=== PATIENT | female | born 1990 | race Caucasian/White ===

== ENCOUNTER 2024-01-23 13:57 | Outpatient (REF) | payer OTHER, SELFPAY ==
--- NOTE | ~2024-01-23 | MM_ITS ---
EXAMINATION: MM DIAGNOSTIC DIGITAL BREAST TOMOSYNTHESIS, RIGHT US BREAST LIMITED, RIGHT MAMMOGRAPHY: CLINICAL INFORMATION: -6 month follow-up for several groups of calcifications in the superior lateral right breast, posterior one third.--Recent benign right breast stereotactic biopsy 08/21/2023. -Follow-up for probable lactating adenoma seen in the right breast 06/17/2023 11:00 axis, which resolved 08/21/2023 along with an abnormal enlarged right axillary lymph node which also resolved on 08/21/2023 exam. -Patient is no longer breast-feeding as of 2 months prior. COMPARISON: Mammography: Prior exams all from [facility]. Bilateral mammography dated 06/17/2023, 07/08/2023. Right breast ultrasound dated 06/17/2023, and 08/21/2023. TECHNIQUE: Digital breast tomosynthesis is performed in both the craniocaudal and mediolateral oblique views along with computer-aided detection (CAD). Synthesized 2D images are generated from the tomosynthesis. In addition to standard views, full-field 3-D digital right ML view was obtained, as well as 2-D spot magnification right CC and ML views. FINDINGS: The breasts are heterogeneously dense, which may obscure small masses (ACR BI-RADS breast composition Category c). There is a biopsy clip in the slightly inferior lateral right breast, posterior one third from previous benign biopsy. The residual groups of calcifications in the posterior superolateral right breast are extremely difficult to visualize, even on spot magnification views, and have undergone no aggressive changes whatsoever. In fact, several groups are no longer clearly visualized . The remaining groups of calcifications remain probably benign. No new suspicious finding in the right breast. ULTRASOUND: CLINICAL INFORMATION: As above. Also, follow-up hypoechoic changes probably corresponding to changes right breast as directly quoted per prior ultrasound report 08/21/2023. COMPARISON: 06/17/2023, 08/21/2023. TECHNIQUE: Targeted sonographic evaluation was performed using a high frequency linear transducer. Attention was given to the right breast upper outer quadrant, upper inner quadrant, and axillary region. Selected archived documentation. FINDINGS: RIGHT BREAST: -The previously seen mass consistent with lactating adenoma at the 11:00 axis has completely resolved. -The previously seen nondescript hypoechoic changes probably corresponding to changes as per the report of 08/21/2023 have all resolved and are no longer visualized. -The previously seen enlarged lymph node is no longer evident. There are no abnormal lymph nodes in the right axilla. There are no abnormal findings in the imaged aspects of the right breast. MM/MM tomosynthesis diagnostic RT IMPRESSION: -No findings right breast suspicious for malignancy. -Previously seen mass 11:00 axis, abnormal right axillary lymph node, and nondescript hypoechoic changes probably corresponding to changes are no longer present and have resolved. No further follow-up recommended. -Several groups of extremely faint calcifications in the posterior superolateral right breast are no longer clearly seen, and none have undergone aggressive change. The remaining groups are extremely faint and remain probably benign. Six-month interval follow-up right breast mammography recommended to ensure stability when the patient is due for bilateral screening. OVERALL ASSESSMENT: Mammography: BI-RADS 3 - Probably benign finding(s) - 6 month follow-up suggested Ultrasound: BI-RADS 3 - Probably benign finding(s) - 6 month follow-up suggested RECOMMENDATION: 6 Month F/U This patient's information was entered into a reminder system with a target due date for their next mammogram.
== END 2024-01-23 13:58 | disposition home or self-care (01) ==
LOC: HO.MAMMO 13:57
PROVIDERS: PCP Nurse Practitioner Adult Health; Visit Provider Advanced Practice Midwife
DX: R92.1 Mammographic calcification found on diagnostic imaging of breast (principal)
CPT/HCPCS: 76642; 77061; 77065

== ENCOUNTER → 2024-01-23 14:00 | Outpatient (BNV) | payer OTHER, SELFPAY | PROVIDERS: PCP Nurse Practitioner Adult Health; Visit Provider Radiology Diagnostic Radiology | DX: R92.1 Mammographic calcification found on diagnostic imaging of breast (principal); R92.331 Mammographic heterogeneous density, right breast | CPT/HCPCS: 76642; 77061; 77065 ==

== ENCOUNTER 2024-07-28 15:00 | Outpatient (REF) | payer OTHER, SELFPAY ==
--- NOTE | ~2024-07-28 | MM_ITS ---
EXAMINATION: MM DIAGNOSTIC DIGITAL BREAST TOMOSYNTHESIS, BILATERAL CLINICAL INFORMATION: 6 month follow-up for 4 groups of extremely subtle calcifications right breast upper and lower quadrants, medial and lateral aspects, mid to posterior one third. Patient also due for yearly. Patient was breast-feeding on prior 06/17/2023 examination, and breast tissue has changed dramatically. -Recent benign right breast stereotactic biopsy 08/21/2023 ([facility]). -Patient is no longer breast-feeding. COMPARISON: [place] [facility] [place]Prior exams [facility]. Bilateral mammography dated 06/17/2023, 07/08/2023. Right breast ultrasound dated 06/17/2023, and 08/21/2023. TECHNIQUE: Digital breast tomosynthesis is performed in both the craniocaudal and mediolateral oblique views along with computer-aided detection (CAD). Synthesized 2D images are generated from the tomosynthesis. In addition to standard views, 2-D spot magnification right CC and ML views were also obtained. FINDINGS: The breasts are heterogeneously dense, which may obscure small masses (ACR BI-RADS breast composition Category c). The 4 separate groups of extremely subtle calcifications are barely visible on today's examination, with none meeting biopsy threshold by appearance. There has been no significant change in the morphology of calcifications although there appears to have been a decrease in number of calcifications involving all groups. These remain probably benign, and 1 year interval follow-up recommended to include right breast diagnostic magnification views. Post benign biopsy clip 9:00 axis right breast. Otherwise, there are no suspicious masses, suspicious grouped calcifications, or areas of architectural distortion in either breast. The overall parenchymal pattern on the right is stable, however on the left there is no nonbreast-feeding imaging to compare with an breast tissue has changed dramatically. There is no skin or axillary abnormality. MM/MM tomosynthesis diagnostic BI IMPRESSION: 1. There are no findings suspicious for malignancy in either breast. 2. Extremely subtle calcifications RIGHT breast, 4 groups, do not definitively meet biopsy threshold and appear less numerous than previously, strongly favoring benignity. 1 year follow-up right breast diagnostic mammogram with magnification views recommended when the patient is due for bilateral screening. ASSESSMENT: BI-RADS BI-RADS 3 - Probably benign finding(s) - 12 month follow-up suggested RECOMMENDATION: 12 month diagnostic follow up Results were provided to the patient at time of visit by the technologist. This patient's information was entered into a reminder system with a target due date for their next mammogram. Electronically signed by: José Manuel Casey MD 07/28/2024 04:21 PM EDT
== END 2024-07-28 15:01 | disposition home or self-care (01) ==
LOC: HO.MAMMO 15:00
PROVIDERS: PCP Nurse Practitioner Adult Health; Visit Provider Nurse Practitioner Adult Health
DX: R92.1 Mammographic calcification found on diagnostic imaging of breast (principal)
CPT/HCPCS: 77062; 77066

== ENCOUNTER → 2024-07-28 15:00 | Outpatient (BNV) | payer OTHER, SELFPAY | PROVIDERS: PCP Nurse Practitioner Adult Health; Visit Provider Radiology Diagnostic Radiology | DX: R92.1 Mammographic calcification found on diagnostic imaging of breast (principal) | CPT/HCPCS: 77062; 77066 ==

== ENCOUNTER 2024-08-06 07:10 | Outpatient (REF) | payer OTHER, SELFPAY ==
[2024-08-06 07:19] LABS: MANUAL DIFF FLAG NO
[2024-08-06 07:56] LABS: Basophils Percent Auto 0.6 % (0-2); Eosinophils Percent Auto 0.6 % (0-4); Hematocrit 40.4 % (37.0-47.0); Hemoglobin 13.7 g/dl (12.0-16.0); Imm Gran Abs Auto 0.01 X10*3/uL (0.00-0.03); Imm Gran Pct Auto 0.2 % (0.0-0.4); Lymphocytes Absolute Auto 2.1 X10*3/uL (1.2-4.9); Mean Corpuscular HGB Conc 33.9 g/dl (31.0-35.0); Mean Corpuscular Volume 85.6 fL (80.0-98.0); Monocytes Absolute Auto 0.3 X10*3/uL (0.1-1.2); Monocytes Percent Auto 6.5 % (2-11); Neutrophils Absolute Auto 2.7 x10*3/uL (2.0-8.3); Neutrophils Percent Auto 51.1 % (45-73); Platelet Count 301 X10*3/uL (160-400); Red Blood Count 4.72 X10*6/uL (4.20-5.50); Red Cell Distribution Width 12.7 % (11.0-16.0); White Blood Count 5.2 X10*3/uL (4.8-10.8)
[2024-08-06 08:34] LABS: Alanine Aminotransferase 11 U/L (0-31); Albumin Level 4.4 g/dL (3.5-5.0); Alkaline Phosphatase 45 U/L (39-117); Anion Gap 9 (12-20); Aspartate Amino Transferase 16 U/L (5-31); Bilirubin Total 0.5 mg/dL (0.0-1.0); Blood Urea Nitrogen 11 mg/dL (9-16); Calcium 9.5 mg/dL (8.4-10.2); Carbon Dioxide 29 mmol/L (22-29); Chloride 104 mmol/L (96-108); Cholesterol 180 mg/dL (<200); Estimated Glomerular Filt Rate > 60; Glucose Random 92 mg/dL (60-115); HDL Cholesterol 70 mg/dL (>40); LDL Cholesterol Calculated 99 mg/dL (<100); Potassium 4.2 mmol/L (3.3-5.1); Sodium 138 mmol/L (135-145); Total Protein 7.2 g/dL (6.5-8.0); Triglycerides 55 mg/dL (<150)
[2024-08-06 08:56] LABS: Vitamin D 25-OH Total 40.8 ng/mL (>30)
== END 2024-08-06 07:11 | disposition home or self-care (01) ==
LOC: HO.LAB 07:10
PROVIDERS: PCP Nurse Practitioner Adult Health; Visit Provider Nurse Practitioner Adult Health
DX: Z00.00 Encounter for general adult medical examination without abnormal findings (principal); Z20.2 Contact with and (suspected) exposure to infections with a predominantly sexual mode of transmission
CPT/HCPCS: 36415; 80053; 80061; 82306; 84443; 85025

== ENCOUNTER 2024-12-07 13:56 | Outpatient (REF) | payer OTHER, SELFPAY ==
--- OUTSIDE RECORDS SUMMARY | 2024-12-07 15:58 | XMS_ITS | Continuity of Care Document ---
Author Organization [facility] Address [address] [place] [address]- Care Team Providers Care Family Support Worker Name Role Phone John LAW, Leida Hoang Primary Care Physician [place] [facility] [place]05[place] - 12/05/[address] [address]- Encounter Diagnosis Ketonuria(Final) - 12/05/24 Discharge Disposition: A-D/C Home Attending Physician: Miguel Ángel Damon MD Admitting Physician: Miguel Ángel Damon MD Referring Physician: Not on Staff, Referring MD Encounter Type: Disch ES Allergies, Adverse Reactions, Alerts No Known Medication Allergies Medications Multivitamin 0 Refills, Maintenance, 08/07/23 3:55:00 PM EDT, Partial fill upon patient request if the prescription is for a schedule II opioid drug. Start Date: 08/07/23 Status: Ordered Repeat number: 1 ondansetron 4 mg oral tablet, disintegrating 1 tablet = 4 mg, By Mouth, Every 8 hours, PRN as needed for nausea/vomiting, # 30 tablet, 0 Refills, Maintenance, 12/05/24 5:27:00 PM EST, DIS Tablet, [id number], Partial fill upon patient request if the prescription is for a schedule II opioid drug., 160, cm, 12/05/24 16:44:00 EST, Height, 61, kg, 12/05/24 16:44:00 EST, Dry Weight Start Date: 12/05/24 Status: Ordered Quantity: 30.0 Unit: tablet Repeat number: 1 Tylenol 8 Hour 650 mg oral tablet, extended release 2 tablet = 1,300 mg, By Mouth, Every 8 hours, 0 Refills, Maintenance, 08/25/23 11:46:00 AM EDT, Partial fill upon patient request if the prescription is for a schedule II opioid drug. Start Date: 08/25/23 Status: Ordered Repeat number: 1 Problem List Condition Confirmation Course Effective Dates Status Health [facility] Informant Family history of breast cancer Confirmed Active Abdominal pain, LLQ Confirmed Active Migraines Confirmed Active Osteopenia Confirmed Active Other vaginitis Confirmed Active Results Radiology Reports * Exam Date Time Procedure Performing Provider Status 12/05/24 3:28 PM US Uterus Transvaginal Lima Stock; Auth (Verified) Notes: (US Uterus Transvaginal) Reason For Exam: Pain RESULT: US Uterus Transvaginal US Transabd 1st Trimester Only, US Pelvic Doppler Comp, US Uterus Transvaginal Hx of Present Illness: Woke up today with RUQ pain, chills, and malaise. Was told to go to ED by her OB. Currently 5 weeks ; Reason: Pain; Clinical Question(s): Ectopic; Order Comment: US < 14 Week 0 Day Transabdominal Single Prep COMPARISON: None TECHNIQUE: Transabdominal and transvaginal pelvic ultrasound with grayscale, color Doppler, and spectral Doppler analysis. FINDINGS: Last menstrual period (LMP): 11/04/2024. Gestational age (GA) by LMP: 4 weeks 3 days. UTERUS AND GESTATIONAL STRUCTURES: There is a tiny cystic structure within the endometrial cavity measuring 6 x 6 x 4 mm, average 6.2 mm, which most likely represents the gestational sac. A tiny yolk sac measuring 1.6 mm is noted within the sac. No pole noted at this time. There is diffuse thickening of the endometrial lining,with double decidual sac sign. Uterus: 10.7 x 4.8 x 6.3 cm, volume 168.8 cc. No masses. No abnormalities of the cervix. RIGHT OVARY: Size: 4.3 x 2.2 x 2.5 cm, volume 12.4 cc. Morphology: Normal echotexture. No pathologic cysts or mass. Normal arterial and venous waveforms. LEFT OVARY: Size: 2.7 x 1.6 x 2.8 cm, volume 6.4 cc. Morphology: Normal echotexture. No pathologic cysts or mass. Normal arterial and venous waveforms. FREE FLUID: Trace free fluid IMPRESSION: 6 mm cystic structure within the endometrial cavity, with a tiny yolk sac, most likely represents an early intrauterine . No pole is noted at this time. Correlation with serum beta-hCGlevels and serial ultrasound recommended. Unremarkable sonographic evaluation of the uterus and ovaries. WSN: [id number] Ordering Physician: Satya Gomez Dictated By: Janie Lunsford MD Dictated Date/Time: 12/05/24 3:41 pm Reviewed By: Janie Lunsford MD Signed By: Janie Lunsford MD Signed Date/Time: 12/05/24 3:41 pm Transcribed By: FINESSE Transcribed Date/Time: 12/05/24 3:34 pm * Exam Date Time Procedure Performing Provider Status 12/05/24 3:28 PM US Pelvic Doppler Comp Lima Barfield ; Auth (Verified) Notes: (US Pelvic Doppler Comp) Reason For Exam: Pain RESULT: US Pelvic Doppler Comp US Transabd 1st Trimester Only, US Pelvic Doppler Comp, US Uterus Transvaginal Hx of Present Illness: Woke up today with RUQ pain, chills, and malaise. Was told to go to ED by her OB. Currently 5 weeks ; Reason: Pain; Clinical Question(s): Ectopic; Order Comment: US < 14 Week 0 Day Transabdominal Single Prep COMPARISON: None TECHNIQUE: Transabdominal and transvaginal pelvic ultrasound with grayscale, color Doppler, and spectral Doppler analysis. FINDINGS: Last menstrual period (LMP): 11/04/2024. Gestational age (GA) by LMP: 4 weeks 3 days. UTERUS AND GESTATIONAL STRUCTURES: There is a tiny cystic structure within the endometrial cavity measuring 6 x 6 x 4 mm, average 6.2 mm, which most likely represents the gestational sac. A tiny yolk sac measuring 1.6 mm is noted within the sac. No pole noted at this time. There is diffuse thickening of the endometrial lining,with double decidual sac sign. Uterus: 10.7 x 4.8 x 6.3 cm, volume 168.8 cc. No masses. No abnormalities of the cervix. RIGHT OVARY: Size: 4.3 x 2.2 x 2.5 cm, volume 12.4 cc. Morphology: Normal echotexture. No pathologic cysts or mass. Normal arterial and venous waveforms. LEFT OVARY: Size: 2.7 x 1.6 x 2.8 cm, volume 6.4 cc. Morphology: Normal echotexture. No pathologic cysts or mass. Normal arterial and venous waveforms. FREE FLUID: Trace free fluid IMPRESSION: 6 mm cystic structure within the endometrial cavity, with a tiny yolk sac, most likely represents an early intrauterine . No pole is noted at this time. Correlation with serum beta-hCGlevels and serial ultrasound recommended. Unremarkable sonographic evaluation of the uterus and ovaries. WSN: [id number] Ordering Physician: Satya Gomez Dictated By: Janie Lunsford MD Dictated Date/Time: 12/05/24 3:41 pm Reviewed By: Janie Lunsford MD Signed By: Janie Lunsford MD Signed Date/Time: 12/05/24 3:41 pm Transcribed By: FINESSE Transcribed Date/Time: 12/05/24 3:34 pm * Exam Date Time Procedure Performing Provider Status 12/05/24 3:28 PM US Transab d 1st Trimester Only Lima Barfield; Auth (Verified) Notes: (US Transabd 1st Trimester Only) Reason For Exam: Pain RESULT: US Transabd 1st Trimester Only US Transabd 1st Trimester Only, US Pelvic Doppler Comp, US Uterus Transvaginal Hx of Present Illness: Woke up today with RUQ pain, chills, and malaise. Was told to go to ED by her OB. Currently 5 weeks ; Reason: Pain; Clinical Question(s): Ectopic; Order Comment: US < 14 Week 0 Day Transabdominal Single Prep COMPARISON: None TECHNIQUE: Transabdominal and transvaginal pelvic ultrasound with grayscale, color Doppler, and spectral Doppler analysis. FINDINGS: Last menstrual period (LMP): 11/04/2024. Gestational age (GA) by LMP: 4 weeks 3 days. UTERUS AND GESTATIONAL STRUCTURES: There is a tiny cystic structure within the endometrial cavity measuring 6 x 6 x 4 mm, average 6.2 mm, which most likely represents the gestational sac. A tiny yolk sac measuring 1.6 mm is noted within the sac. No pole noted at this time. There is diffuse thickening of the endometrial lining,with double decidual sac sign. Uterus: 10.7 x 4.8 x 6.3 cm, volume 168.8 cc. No masses. No abnormalities of the cervix. RIGHT OVARY: Size: 4.3 x 2.2 x 2.5 cm, volume 12.4 cc. Morphology: Normal echotexture. No pathologic cysts or mass. Normal arterial and venous waveforms. LEFT OVARY: Size: 2.7 x 1.6 x 2.8 cm, volume 6.4 cc. Morphology: Normal echotexture. No pathologic cysts or mass. Normal arterial and venous waveforms. FREE FLUID: Trace free fluid IMPRESSION: 6 mm cystic structure within the endometrial cavity, with a tiny yolk sac, most likely represents an early intrauterine . No pole is noted at this time. Correlation with serum beta-hCGlevels and serial ultrasound recommended. Unremarkable sonographic evaluation of the uterus and ovaries. WSN: [id number] Ordering Physician: Satya Gomez Dictated By: Janie Lunsford MD Dictated Date/Time: 12/05/24 3:41 pm Reviewed By: Janie Lunsford MD Signed By: Janie Lunsford MD Signed Date/Time: 12/05/24 3:41 pm Transcribed By: FINESSE Transcribed Date/Time: 12/05/24 3:34 pm * Exam Date Time Procedure Performing Provider Status 12/05/24 3:28 PM US RUQ Lima Barfield; Auth (Ve rified) Notes: (US RUQ) Reason For Exam: Abdominal Pain;Other: RESULT: US RUQ US RUQ Hx of Present Illness: Woke up today with RUQ pain, chills, and malaise. Was told to go to ED by her OB. Currently 5 weeks ; Reason: Other:; Abdominal Pain; Clinical Question(s): Cholecystitis COMPARISON: None. FINDINGS: Liver: Normal in size and echotexture. No focal lesion. Smooth hepatic contour. Main portal vein patent with normal hepatopetal direction of flow. Gallbladder: Biliary Tree: No intrahepatic or extrahepatic bile duct dilation is identified. Common duct measures: 0.3 cm. Pancreas: No abnormality in the visualized portions of the pancreas. Right kidney: 10.9 cm in length. Normal parenchymal echotexture and thickness. No hydronephrosis, stone or mass. IMPRESSION: Unremarkable right upper quadrant ultrasound. WSN: [id number] Ordering Physician: Satya Gomez Dictated By: Janie Lunsford MD Dictated Date/Time: 12/05/24 3:34 pm Reviewed By: Janie Lunsford MD Signed By: Janie Lunsford MD Signed Date/Time: 12/05/24 3:34 pm Transcribed By: FINESSE Transcribed Date/Time: 12/05/24 3:33 pm Vital Signs Most recent to oldest [Reference Range]: 1 2 3 Height 160 cm (12/05/24 4:44 PM) 160 cm (12/05/24 1:05 PM) 160 cm (12/05/24 1:04 PM) Weight 61 kg (12/05/24 4:44 PM) 61 kg (12/05/24 1:05 PM) 61 kg (12/05/24 1:04 PM) Oxygen Saturation [94-100 %] 100 % (12/05/24 4:44 PM) 100 % (12/05/24 1:04 PM) Pulse Rate [55-90 bpm] 94 bpm *H* (12/05/24 4:44 PM) 101 bpm *H* (12/05/24 1:04 PM) Body Mass Index [18.5-24.99 kg/m2] 23.83 kg/m2 (12/05/24 4:44 PM) 23.83 kg/m2 (12/05/24 1:04 PM) Blood Pressure [90-138/55-84 mm Hg] 105/71mm Hg (12/05/24 4:44 PM) 135/73mm Hg (12/05/24 1:04 PM) Respiratory Rate [16-30 br/min] 20 br/min (12/05/24 4:44 PM) 18 br/min (12/05/24 1:04 PM) Temperature [96.8-100.4 DegF] 100.3 DegF (12/05/24 4:44 PM) 97.3 DegF (12/05/24 1:04 PM) Mode of Delivery (Oxygen) Room air (12/05/24 4:44 PM) Room air (12/05/24 1:04 PM) Blood pressure sites Arm, left (12/05/24 4:44 PM) Arm, left (12/05/24 1:04 PM) Temperature Route Oral (12/05/24 4:44 PM) Temporal (12/05/24 1:04 PM) Dry Weight 61 kg (12/05/24 4:44 PM) 61 kg (12/05/24 1:05 PM) 61 kg (12/05/24 1:04 PM) Weight Obtained Via Patient/family state d (12/05/24 1:05 PM) Social History Social History Type Response Smoking Status Never smoker entered on: 09/12/15 Sex Sex Representation Female (finding) Note * Nelson SALMON, Miguel Ángel Infante: PERFORM, SIGN, VERIFY Event Display: Patient Education Handout Authored Date: [id number] Patient Care team information Care Team Personnel Name: John LAW, Leida Hoang Position: [facility] Outreach Member Role: PCP Address: [address] [place] [address] Internal [place], [place] [address] Telecom: Care Team Related Persons Name: CHANTALE MORAN Name: MARY BIGGS Insurance Providers Guarantor name: LEIDA BIGGS Health Plan Information #: 1 Payer: [employer] Member Number: [id number] Policy Number: NA Group Number: [id number] Health Plan Information #: 2 Payer: [employer] P[employer] Member Number: [id number] Policy Number: NA Group Number: [id number]
[2024-12-08 12:33] LABS: EBV-NA IgG Index >600.00 U/mL; EBV-VCA IgM Ab <36.00 U/mL
== END 2024-12-07 13:57 | disposition home or self-care (01) ==
LOC: HO.LAB 13:56
PROVIDERS: PCP Nurse Practitioner Adult Health; Visit Provider Nurse Practitioner Adult Health
DX: J02.9 Acute pharyngitis, unspecified (principal); R50.9 Fever, unspecified
CPT/HCPCS: 36415; 86664; 86665

== ENCOUNTER 2025-03-01 09:00 | Outpatient (RCR) | payer OTHER, SELFPAY | END 2025-04-07 08:47 | disposition home or self-care (01) | LOC: HO.PT 09:00 | PROVIDERS: PCP Nurse Practitioner Adult Health; Visit Provider Nurse Practitioner Adult Health | DX: O99.891 Other specified diseases and conditions complicating pregnancy (principal); M62.08 Separation of muscle (nontraumatic), other site; Z3A.08 8 weeks gestation of pregnancy | CPT/HCPCS: 97110; 97112; 97140; 97161 ==